=== PATIENT | female | born 1970 | race Caucasian/White ===

== ENCOUNTER 2017-09-14 15:43 | Emergency (ER) | payer BC ==
[2017-09-14] MEDS: BUPIVACAINE 0.25% (MPF) 30 ML INJ INJ (16:42)
[2017-09-14] MEDS: DEXAMETHASONE 10 MG/ML 1 ML INJ IM (18:56)
[2017-09-14] MEDS: LIDOCAINE 5% PATCH TD (19:04)
== END 2017-09-14 19:44 | disposition home or self-care (01) ==
LOC: FTE 15:43
DX: M51.16 Intervertebral disc disorders with radiculopathy, lumbar region (principal); R40.2412 Glasgow coma scale score 13-15, at arrival to emergency department
CPT/HCPCS: 72100; 72131; 81025; 96372; 99285-25